=== PATIENT | male | born 1985 | race Two or more races ===

== ENCOUNTER 2024-02-20 17:05 | Emergency (ER) | payer OTHER, BC ==
[2024-02-20 17:28] VITALS: RESP 18; TEMP 98.2
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
[2024-02-20] MEDS: ACETAMINOPHEN TAB 325 MG TAB PO STA (18:32)
[2024-02-20 18:42] VITALS: BP 132/78; PULSE 80
== END 2024-02-20 18:51 | disposition home or self-care (01) ==
LOC: EC 17:05
DX: S50.812A Abrasion of left forearm, initial encounter (principal); Z91.013 Allergy to seafood; V48.5XXA Car driver injured in noncollision transport accident in traffic accident, initial encounter; Y92.410 Unspecified street and highway as the place of occurrence of the external cause
CPT/HCPCS: 99284